=== PATIENT | male | born 1990 | race Two or more races ===

== ENCOUNTER 2019-02-01 09:43 | Emergency (ER) | payer OTHER ==
[2019-02-01] MEDS ORDERED: FENTANYL CITRATE INJ/PF 100 MCG/2 ML AMPUL ONE (09:48)
[2019-02-01] MEDS ORDERED: ONDANSETRON HCL INJ/PF 4 MG/2 ML SDV ONE (09:56)
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
--- NOTE | 2019-02-01 11:12 | RADIOLOGY REPORT (SQ) ---
EXAM DESCRIPTION: WRIST BILATERAL 2 VIEWS COMPLETED DATE/TIME: 02/01/2019 10:54 am REASON FOR STUDY: trauma COMPARISON: None. NUMBER OF VIEWS: Five views. TECHNIQUE: AP, lateral, and oblique radiographic images acquired of the right and left wrist. LIMITATIONS: None. FINDINGS: MINERALIZATION: Normal. BONES: There are comminuted and angulated intra-articular fractures of the bilateral distal radii and an additional fracture of the left ulnar styloid. A single lateral post reduction view of the right wrist is provided, with the distal radius in near anatomic alignment. SOFT TISSUES: No soft tissue swelling. No foreign body. OTHER: No other significant finding. IMPRESSION: There are comminuted and angulated intra-articular fractures of the bilateral ldistal ra dii and an additional fracture of the left ulnar styloid. A single lateral post reduction view of the right wrist is provided, with the distal radius in near anatomic alignment. TECHNICAL DOCUMENTATION: JOB ID: [id number] [employer]- All Rights Reserved Reading location - IP/workstation name: [email or web address]
--- NOTE | 2019-02-01 11:13 | RADIOLOGY REPORT (SQ) ---
EXAM DESCRIPTION: PELVIS AP COMPLETED DATE/TIME: 02/01/2019 10:54 am REASON FOR STUDY: trauma COMPARISON: None. NUMBER OF VIEWS: One view TECHNIQUE: AP Pelvis LIMITATIONS: None. FINDINGS: MINERALIZATION: Normal. HIPS: There is a transversely oriented fracture of the proximal right femoral diaphysis. There is 1 shaft with lateral displacement and 1.2 cm of shortening on post reduction films. No additional frac tures visualized. No evidence of hip dislocation. PELVIS AND SACRUM: No acute fracture or dislocation. No worrisome bone lesions. PUBIS AND ISCHIUM: No acute fracture. SOFT TISSUES: No findings. OTHER: No other significant finding. IMPRESSION: Transversely oriented right proximal femoral diaphysis fracture. Persistent 1 shaft wit h lateral displacement and 1.2 cm of shortening on postreduction films. TECHNICAL DOCUMENTATION: JOB ID: [id number] [employer]- All Rights Reserved Reading location - IP/workstation name: [email or web address]
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
== END 2019-02-01 10:20 | disposition short-term general hospital (02) ==
LOC: ER 09:43
DX: S72.001A Fracture of unspecified part of neck of right femur, initial encounter for closed fracture (principal); S52.572A Other intraarticular fracture of lower end of left radius, initial encounter for closed fracture; S52.612A Displaced fracture of left ulna styloid process, initial encounter for closed fracture; S52.571A Other intraarticular fracture of lower end of right radius, initial encounter for closed fracture; S20.221A Contusion of right back wall of thorax, initial encounter; W13.2XXA Fall from, out of or through roof, initial encounter
CPT/HCPCS: 71045; 72020; 72170; 99291